=== PATIENT | female | born 1990 | race Caucasian/White ===

== ENCOUNTER → 2018-10-30 | Outpatient (CLI) | payer OTHER ==
[2018-10-30 11:12] LABS: ABSOLUTE EOSINOPHILS # (AUTO) 0.1 10^3/uL (0.0-0.6); ABSOLUTE LYMPHOCYTES (AUTO) 1.6 10^3/uL (0.5-4.7); ABSOLUTE MONOCYTES (AUTO) 0.2 10^3/uL (0.1-1.4); ABSOLUTE NEUT (AUTO) 3.1 10^3/uL (1.7-8.2); BASOPHILS % (AUTO) 0.2 % (0-2); HEMATOCRIT 42.2 % (36.0-47.0); HEMOGLOBIN 14.3 g/dL (12.0-15.5); LYMPHOCYTES % (AUTO) 32.7 % (13-45); MEAN CORPUSCULAR VOLUME 91 fl (80-97); MONOCYTES % (AUTO) 4.2 % (3-13); PLATELET COUNT 204 10^3/uL (150-450); RED BLOOD COUNT 4.63 10^6/uL (3.72-5.28); SEGMENTED NEUTROPHILS % (AUTO) 61.9 % (42-78); TOTAL CELLS COUNTED % (AUTO) 100 %
[2018-10-30 11:38] LABS: ALANINE AMINOTRANSFERASE 25 U/L (9-52); ALBUMIN 4.6 g/dL (3.5-5.0); ALKALINE PHOSPHATASE 71 U/L (38-126); ANION GAP 10 (5-19); ASPARTATE AMINO TRANSFERASE 25 U/L (14-36); BILIRUBIN,DIRECT 0.2 mg/dL (0.0-0.4); BILIRUBIN,TOTAL 1.8 mg/dL (0.2-1.3); BLOOD UREA NITROGEN 12 mg/dL (7-20); CALCIUM 9.8 mg/dL (8.4-10.2); CARBON DIOXIDE 29 mmol/L (22-30); CHLORIDE 104 mmol/L (98-107); GLUCOSE 86 mg/dL (75-110); POTASSIUM 5.1 mmol/L (3.6-5.0); TOTAL PROTEIN 7.2 g/dL (6.3-8.2)
== END ==
LOC: OD 10:03
PROVIDERS: ATTEND Physician Assistant
DX: Z11.2 Encounter for screening for other bacterial diseases (principal); I10 Essential (primary) hypertension
CPT/HCPCS: 36415; 80053; 85025; 87070